=== PATIENT | male | born 1965 | race African-American/Black ===

== ENCOUNTER 2020-12-12 23:07 | Emergency (ER) | payer MEDICAID, SELFPAY ==
[~2020-12-12] VITALS: Ht 182.9 cm; Wt 95.0 kg
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
[2020-12-12] MEDS ORDERED: IBUPROFEN 800 MG TABLET PO ONE (23:30)
[2020-12-12] MEDS ORDERED: PLEASE ENTER ALLERGIES MC SCH (23:45)
[2020-12-13 00:40] VITALS: BP 138/90
--- NOTE | 2020-12-13 00:43 | NUR ---
Pt dc'd to law enforcement with written and verbal instructions. Pt states understanding. Pt ambulatroy out of dept with law enforcement.
== END 2020-12-13 00:46 | disposition home or self-care (01) ==
LOC: ED 23:37
DX: S60.222A Contusion of left hand, initial encounter (principal); M79.642 Pain in left hand; M79.89 Other specified soft tissue disorders; X58.XXXA Exposure to other specified factors, initial encounter; Y93.89 Activity, other specified; Y92.89 Other specified places as the place of occurrence of the external cause; Y99.8 Other external cause status
CPT/HCPCS: 99284

== ENCOUNTER 2020-12-21 06:08 | Observation (INO) | payer MEDICAID, OTHER ==
[~2020-12-21] VITALS: Ht 185.4 cm; Wt 101.5 kg
--- NOTE | 2020-12-21 06:19 | NUR ---
pt [facility], recieved from skilled nursing. per ems, pt had complaints of chest and while being evaluated for chest pain at the skilled nursing, pt became unresponsive. skilled nursing staff states he had no pulse and cpr was initiated. pt became responsive after 3 min cpr and transported here. pt arrives A+O x 4 and on RA. denies any pain at this time. pt attached to all monitors and law enforcement at bedside.
[2020-12-21] MEDS ORDERED: baclofen PO (06:29)
[2020-12-21] MEDS ORDERED: SODIUM CHLORIDE FLUSH 10ML SYR IVF ONE (06:30)
[2020-12-21] MEDS ORDERED: ASPIRIN 81 MG TABLET CHEW PO ONE (06:30)
[2020-12-21] MEDS ORDERED: ASPIRIN 81 MG TABLET CHEW ONE (06:31)
--- NOTE | 2020-12-21 06:36 | NUR ---
pt medicated with ASA per emar
[2020-12-21 06:54] LABS: ALANINE AMINOTRANSFERASE 35 U/L (12-78); ALBUMIN 3.7 g/dL (3.4-5.0); ANION GAP 6 mmol/L (5-15); CALCIUM 8.3 mg/dL (8.5-10.1); CHLORIDE 108 mmol/L (98-107); CREATININE 1.25 mg/dL (0.7-1.3)
[2020-12-21 06:55] LABS: BASOPHILS % (AUTO) 0 % (0-1); EOSINOPHILS % (AUTO) 4 % (1-7); LYMPHOCYTES % (AUTO) 33 % (22-44); MEAN CORPUSCULAR HEMOGLOBIN 27.5 pg (27.5-34.5); MEAN CORPUSCULAR HGB CONC 33.2 g/dL (33.2-36.2); MEAN PLATELET VOLUME 8.5 fL (7.4-10.4); MONOCYTES % (AUTO) 9 % (2-9); NEUTROPHILS % (AUTO) 53 % (42-75); PLATELET COUNT 164 x10^3/uL (130-400); RED CELL DISTRIBUTION WIDTH 15.1 % (9.4-14.8)
[2020-12-21 06:56] LABS: INTERNATIONAL NORMALIZED RATIO 1.04 (0.93-1.1); MD NO; PROTHROMBIN TIME 11.1 Seconds (9.6-11.5)
[2020-12-21 06:58] LABS: ALKALINE PHOSPHATASE 62 U/L (45-117); BILIRUBIN,TOTAL 0.6 mg/dL (0.2-1.0); TOTAL PROTEIN 7.3 g/dL (6.4-8.2); TROPONIN I < 0.015 ng/mL (0.000-0.045)
--- NOTE | 2020-12-21 07:01 | NUR ---
REPORT RECEIVED AT BEDSIDE FROM MARIO ALBERTO SHRESTHA, CARE ASSUMED AT THIS TIME. PT SLEEPING, RESPS EVEN AND UNLABORED. VSS. NSR ON SENIOR FINANCIAL REPORTING ANALYST WITH NO ECTOPY. ALL MONITORS IN PLACE, SATTING >95% ON ROOM AIR. [facility] DEPUT AT BEDSIDE. AWAITING LAB, CXR RESULTS, AND CT SCANS. CALL LIGHT IN REACH.
[2020-12-21] MEDS ORDERED: OMNIPAQUE 350 MG/ML, 100ML BOTTLE ONE (07:15)
--- NOTE | 2020-12-21 07:25 | NUR ---
REPORT FROM VINICIO LLANES.
--- NOTE | 2020-12-21 07:25 | NUR ---
pt transported back from [place] by this RN. pt reports sternal CP of 4, unchanged since shift handoff with previous RN. pt is a&ox4, neurologically intact, nsr on hall monitor with no ectopy. pt moved from t3 to 17 as he is hemodynamically stable. report given at bedside to MARIO ALBERTO Tsang who is assuming care. deputy at bedside. all monitors remain in place. awaiting ct reads and dispo.
--- NOTE | 2020-12-21 09:15 | NUR ---
report to Nya LLANES.
[2020-12-21 10:07] VITALS: BP 146/93
[2020-12-21] MEDS ORDERED: BACL20TA PO (10:55)
[2020-12-21] MEDS ORDERED: IBUP-1223 PO (10:58)
[2020-12-21] MEDS: SODIUM CHLORIDE 0.9% 1,000 ML IV SCH (11:00)
[2020-12-21] MEDS ORDERED: ONDANSETRON 2MG/ML, 2ML IVPush PRN (11:00)
[2020-12-21] MEDS ORDERED: KETOROLAC 30 MG/1 ML IV PRN (11:00)
[2020-12-21] MEDS ORDERED: GABAPENTIN 300 MG CAPSULE PO PRN (11:00)
[2020-12-21] MEDS: ENOXAPARIN 40 MG/0.4 ML SQ SCH (11:00)
[2020-12-21] MEDS ORDERED: METHOCARBAMOL 500 MG TABLET PO PRN (11:00)
[2020-12-21] MEDS ORDERED: ONDANSETRON ODT 4 MG PO PRN (11:00)
[2020-12-21] MEDS ORDERED: ACETAMINOPHEN 325 MG TABLET PO PRN (11:00)
[2020-12-21 11:32] LABS: AMPHETAMINE SCREEN, URINE Negative (Negative); BARBITURATE SCREEN, URINE Negative (Negative); BENZODIAZEPINE SCREEN, URINE Negative (Negative); CANNABINOID SCREEN, URINE Negative (Negative); COCAINE SCREEN, URINE Negative (Negative); METHADONE SCREEN, URINE Negative (Negative); OPIATE SCREEN, URINE Negative (Negative)
[2020-12-21 11:53] LABS: TROPONIN I < 0.015 ng/mL (0.000-0.045)
[2020-12-21 12:35] VITALS: BP 147/75
[2020-12-21 18:58] LABS: TROPONIN I < 0.015 ng/mL (0.000-0.045)
[2020-12-21 19:30] VITALS: BP 133/85
[2020-12-22 01:04] VITALS: BP 131/86
[2020-12-22] MEDS: SODIUM CHLORIDE 0.9% 1,000 ML IV SCH ×2 (01:04→13:41)
[2020-12-22 05:34] LABS: BASOPHILS % (AUTO) 0 % (0-1); EOSINOPHILS % (AUTO) 3 % (1-7); LYMPHOCYTES % (AUTO) 20 % (22-44); MEAN CORPUSCULAR HEMOGLOBIN 27.7 pg (27.5-34.5); MEAN CORPUSCULAR HGB CONC 33.5 g/dL (33.2-36.2); MEAN PLATELET VOLUME 8.8 fL (7.4-10.4); MONOCYTES % (AUTO) 7 % (2-9); NEUTROPHILS % (AUTO) 70 % (42-75); PLATELET COUNT 157 x10^3/uL (130-400); RED BLOOD COUNT 4.65 x10^6/uL (4.38-5.82)
[2020-12-22 05:41] LABS: ALBUMIN 3.5 g/dL (3.4-5.0); ANION GAP 7 mmol/L (5-15); CALCIUM 8.3 mg/dL (8.5-10.1); CHLORIDE 111 mmol/L (98-107)
[2020-12-22 05:46] LABS: ALANINE AMINOTRANSFERASE 30 U/L (12-78); ALKALINE PHOSPHATASE 61 U/L (45-117); BILIRUBIN,TOTAL 0.5 mg/dL (0.2-1.0); CHOL/HDL RATIO 2.3; CHOLESTEROL, TOTAL 126 mg/dL (140-239); CREATININE 1.13 mg/dL (0.7-1.3); HDL CHOL % 43 % (26-37); HDL CHOLESTEROL (DIRECT) 54 mg/dL (40-60); LDL CHOLESTEROL,CALCULATED 55 mg/dL (54-169); MD NO; TOTAL PROTEIN 6.9 g/dL (6.4-8.2); TRIGLYCERIDES 86 mg/dL (50-200); VLDL CHOLESTEROL 17 mg/dL (0-25)
[2020-12-22] MEDS ORDERED: ASPIRIN 81 MG TABLET EC PO SCH (06:00)
[2020-12-22 07:10] VITALS: BP 129/79
[2020-12-22] MEDS ORDERED: REGADENOSON 0.4 MG/5 ML SYRINGE ONE (09:33)
[2020-12-22] MEDS: ENOXAPARIN 40 MG/0.4 ML SQ SCH (10:54)
[2020-12-22 12:12] VITALS: BP 128/79
[2020-12-22 12:15] VITALS: BP 147/92
[2020-12-22 12:17] VITALS: BP 139/95
[2020-12-22] MEDS ORDERED: GABA300C PO (13:55)
== END 2020-12-22 16:30 ==
LOC: ED 06:25 → EDIP 08:26 → INTOOBSV 08:26 → 5SO 09:40
PROVIDERS: ADMIT Internal Medicine; ATTEND Internal Medicine
DX: I46.9 Cardiac arrest, cause unspecified (principal); R07.89 Other chest pain; R55 Syncope and collapse; I10 Essential (primary) hypertension; M79.642 Pain in left hand; F15.10 Other stimulant abuse, uncomplicated; Z79.899 Other long term (current) drug therapy
CPT/HCPCS: 36415; 70450; 71045; 71275; 74174; 78452; 80053; 80061; 80307; 83690; 83735; 84100; 84443; 84484; 85025; 85610; 85730; 93005; 93017; 93306; 96361; 96372; 96374; 96375; 99291; A9502; G0378; J1650; J1885; J2405; J2785; J7030; Q9967